=== PATIENT | female | born 2000 | race Caucasian/White ===

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

== ENCOUNTER → 2018-02-10 | Day surgery (SDC) | payer BC, OTHER ==
[2018-01-28 11:25] VITALS: Ht 170.2 cm; Wt 70.5 kg
[~2018-02-10] VITALS: Ht 170.2 cm; Wt 70.5 kg
[~2018-02-10] MED LIST: AMPH20TA2 PO; BUPIVACAINE 0.25% 2.5MG/ML PF 10 ML VIAL ONE; IOPAMIDOL INJ 61% 15 ML VIAL ONE; LIDOCAINE HCL 1% MPF 5 ML VIAL ONE; METHYLPREDNISOLONE ACETATE 80 MG/ML VIAL ONE; MISCCAP80 PO
--- NOTE | 2018-02-10 14:14 | History & Physical Bridge - [place] ---
H&P Re-Evaluation Bridge Note: I have examined the patient, reviewed the History & Physical and in the interval since the performance of the History & Physical I have noted the following changes of clinical significance: No changes noted
--- NOTE | 2018-02-10 14:37 | [facility] Post Operative Brief Note ---
Immediate Operative Summary Operative Date Feb 10, 2018. Pre-Operative Diagnosis L5-S1 Spondylolisthesis with chronic low back pain Post-Operative Diagnosis Same Procedure(s) Performed Bilateral Pars Defect L5 Injection Surgeon Dr. Hussein Bernardo Incident Response Coordinator Surgeon(s) None Estimated Blood Loss 0 Findings Consistent with Post-Op Diagnosis Specimens NA Drains None Anesthesia Type Local Complication(s) none Disposition Disposition:
[2018-02-10 14:38] VITALS: TEMP 36.3
--- NOTE | 2018-02-10 14:38 | Discharge Instructions ---
Discharge Instructions Date of Service Feb 10, 2018. Visit Reason for Visit: Bilateral Pars Defect L5, Spondylolysis Discharge Discharge Diagnosis / Problem: low back pain Discharge Goals Goal(s): Decrease discomfort, Improve function Activity Recommendations Activity Limitations: resume your previous activity Anesthesia . Post Anesthesia Instructions: If you have had General Anesthesia or IV Sedation: * Do not drive today. * Resume driving when surgeon permits. * Do not make important decisions or sign legal documents today. * Call surgeon for: 1. Temperature elevations greater than 101 degrees F. 2. Uncontrollable pain. 3. Excessive bleeding. 4. Persistent nausea and vomiting. 5. Medication intolerance (nausea, vomiting or rash). * For nausea and vomiting use only clear liquids such as: tea, soda, bouillon until nausea subsides, then gradually increase diet as tolerated. * If you have any concerns or questions, call your surgeon's office. If physician is unavailable and it is an emergency, call 911 or go to the nearest emergency room. . Diet Recommendations Recommended Home Diet: resume previous diet Procedures Procedures Performed: Bilateral Pars Defect L5 Injection Pending Studies Studies pending at discharge: no Medical Emergencies . Who to Call and When: Medical Emergencies: If at any time you feel your situation is an emergency, please call 911 immediately. . Non-Emergent Contact Non-Emergency issues call your: Specialist . . "Provider Documentation" section prepared by Chau Bernardo. .
[2018-02-10 14:52] VITALS: BP 107/67; PULSE 83; O2SAT 99
--- NOTE | 2018-02-10 15:24 | OPERATIVE REPORT ---
DATE OF OPERATION: 02/10/2018 PREOPERATIVE DIAGNOSIS: L5-S1 spondylolisthesis with chronic low back pain, bilateral L5 pars defects. POSTOPERATIVE DIAGNOSIS: Same. PROCEDURE: Bilateral L5 pars defect injections. 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 She presents today for bilateral pars defects injections to see if this helps to diminish the pain and irritation she has localizing to the lower lumbar spine. PHYSICAL EXAMINATION: Pleasant female seated comfortably. She has soreness to palpation of the lower L5-S1 area, which is worse with extension. No problems with flexion. She has negative seated straight leg raises, intact sensation and normal lower extremity strength. CONSENT: Verbal and written consent was obtained from the patient. Risks and benefits were reviewed. Risks include, but are not limited to abscess, allergic reaction. The patient wishes to proceed. DESCRIPTION OF PROCEDURE: The patient was taken back to the special procedures room of the [facility] where she was maintained in a prone position. Backside was cleansed with Betadine x3 and a dry sterile dressing was applied. Fluoroscope was used to identify the L5 pars defect on the left side. Overlying skin was anesthetized with 2.5 mL of lidocaine 1% with a 25 gauge 1.5-inch needle. A 25 gauge 3.5 inch spinal needle was directed into the defect. Isovue-300 contrast 0.25 mL or less was injected and which showed it to be within the defect. She then underwent injection after negative aspiration of 40 mg of Depo-Medrol and 1.5 mL of bupivacaine 0.25%. The right L5 pars defect was then identified in an oblique view. Overlying skin was anesthetized with 2.5 mL of lidocaine 1% with a 25 gauge 1.5-inch needle. A 25 gauge 3.5 inch spinal needle was then directed into the defect. Isovue-300 contrast of scant amount less than 0.25 mL was injected in which showed it to be intra-articular. She then underwent injection after negative aspiration of 40 mg Depo-Medrol and 1.5 mL of bupivacaine 0.25%. Injections were well tolerated. DISPOSITION: 1. The patient is taken out into the discharge recovery area where she will be discharged home once discharge criteria are met. 2. Followup in 4-week followup. I attest to the content of the Intraoperative Record and any orders documented therein. Any exception s are noted below.
== END | disposition home or self-care (01) ==
LOC: X.SURG 13:28
PROVIDERS: ATTEND Physical Medicine & Rehabilitation
DX: M43.17 Spondylolisthesis, lumbosacral region (principal); M54.5 Low back pain; G89.29 Other chronic pain

== ENCOUNTER → 2018-06-22 | Day surgery (SDC) | payer BC, OTHER ==
[2018-05-12 08:22] VITALS: Ht 172.7 cm; Wt 69.5 kg
[~2018-06-22] VITALS: Ht 172.7 cm; Wt 69.5 kg
[~2018-06-22] MED LIST changes: -BUPIVACAINE 0.25% 2.5MG/ML PF 10 ML VIAL ONE; +BUPIVACAINE 0.25% 30 ML VIAL ONE; -MISCCAP80 PO
--- NOTE | 2018-06-22 14:01 | [facility] Post Operative Brief Note ---
Immediate Operative Summary Operative Date Jun 22, 2018. Pre-Operative Diagnosis Bilateral L5 pars defects with grade I L5-S1 spondylolisthesis, chronic low back pain. Post-Operative Diagnosis Same Procedure(s) Performed Bilateral Pars Defect L5 Injection Surgeon Dr. Renetta Bernardo Gaming Surveillance Observer Surgeon(s) None Estimated Blood Loss 0 Findings Consistent with Post-Op Diagnosis Specimens NA Drains None Anesthesia Type Local Complication(s) none Disposition Disposition:
[2018-06-22 14:03] VITALS: TEMP 37.6
--- NOTE | 2018-06-22 14:03 | Discharge Instructions ---
Discharge Instructions Date of Service Jun 22, 2018. Visit Reason for Visit: Low Back Pain, Spondylolysis Discharge Discharge Diagnosis / Problem: Low back pain Discharge Goals Goal(s): Decrease discomfort, Improve function Activity Recommendations Activity Limitations: resume your previous activity Anesthesia . Post Anesthesia Instructions: If you have had General Anesthesia or IV Sedation: * Do not drive today. * Resume driving when surgeon permits. * Do not make important decisions or sign legal documents today. * Call surgeon for: 1. Temperature elevations greater than 101 degrees F. 2. Uncontrollable pain. 3. Excessive bleeding. 4. Persistent nausea and vomiting. 5. Medication intolerance (nausea, vomiting or rash). * For nausea and vomiting use only clear liquids such as: tea, soda, bouillon until nausea subsides, then gradually increase diet as tolerated. * If you have any concerns or questions, call your surgeon's office. If physician is unavailable and it is an emergency, call 911 or go to the nearest emergency room. . Diet Recommendations Recommended Home Diet: resume previous diet Procedures Procedures Performed: Bilateral Pars Defect L5 Injection Pending Studies Studies pending at discharge: no Medical Emergencies . Who to Call and When: Medical Emergencies: If at any time you feel your situation is an emergency, please call 911 immediately. . Non-Emergent Contact Non-Emergency issues call your: Specialist . . "Provider Documentation" section prepared by Chau Bernardo. .
[2018-06-22 14:25] VITALS: BP 109/74; PULSE 84; O2SAT 100
--- NOTE | 2018-06-22 14:34 | OPERATIVE REPORT ---
DATE OF OPERATION: 06/22/2018 PREOPERATIVE DIAGNOSES: Bilateral L5 pars defects with grade 1 L5-S1 spondylolisthesis, chronic low back pain. POSTOPERATIVE DIAGNOSES: Bilateral L5 pars defects with grade 1 L5-S1 spondylolisthesis, chronic low back pain. PROCEDURE: Bilateral L5 pars defects injections under fluoroscopic guidance. 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 In the spring, she underwent injections bilaterally into the pars and had 50% relief for the better part of 4 weeks. Fortunately, she returned to the intense swimming and the pain relief diminished. She presents today for an injection to provide her with some relief and benefits of the low back pain. PHYSICAL EXAMINATION: GENERAL: Pleasant female, seated comfortably. MUSCULOSKELETAL: Lumbar paraspinal muscles and the facet areas were palpated. Soreness was noted bilaterally. She had no focal weakness. She had intact sensation with negative seated straight leg raises. CONSENT: Verbal and written consent was obtained from the patient. Risks and benefits were reviewed. Risks include but are not limited to abscess, allergic reaction. She wishes to proceed. DESCRIPTION OF PROCEDURE: The patient was taken back to the special procedures room of the [facility] where she was maintained in a prone position. Backside was cleansed with Betadine x3 and a dry sterile dressing was applied. Fluoroscopy was used to identify the left L5 pars defect in an oblique view. Overlying skin was anesthetized with 2.5 mL of lidocaine 1% with a 25-gauge 1.5-inch needle. A 25-gauge 3.5-inch needle was then injected into the pars defect, it was confirmed with a scant amount of Isovue. She then underwent injection after negative aspiration of 40 mg of Depo-Medrol and 0.5 mL of bupivacaine 0.25%. The pars defect was then fluoroscopically identified in an oblique view. Overlying skin was again anesthetized with 2.5 mL of lidocaine 1% with 25-gauge 1.5-inch needle. A 25-gauge 3.5-inch spinal needle was then directed into the pars area. Under fluoroscopic guidance, she then underwent injection of Isovue 300 contrast less than 0.25mL which showed it to be superior and medial to the target. It was repositioned and additional small amount of Isovue demonstrated to be at the pars region. She then underwent injection after negative aspiration of 40 mg Depo-Medrol and 0.5 mL of bupivacaine 0.25%. Injection was well tolerated. DISPOSITION: 1. The patient is taken out into the discharge recovery area where she will be discharged home once discharge criteria are met. 2. Follow up in the [facility] office in 4 weeks' time. I attest to the content of the Intraoperative Record and any orders documented therein. Any exceptions are noted below. [place]
== END | disposition home or self-care (01) ==
LOC: X.SURG 13:05
PROVIDERS: ATTEND Physical Medicine & Rehabilitation
DX: M43.17 Spondylolisthesis, lumbosacral region (principal)